=== PATIENT | female | born 2005 | race Caucasian/White ===

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

== ENCOUNTER 2023-08-25 16:15 | Emergency (ER) | payer OTHER, SELFPAY ==
[2023-08-25 16:28] VITALS: BP 103/70; PULSE 115; RESP 16; TEMP 36.8; O2SAT 99
--- NOTE | 2023-08-25 16:38 | ED.URI ---
HPI - URI/Sore Throat General Chief Complaint: Upper Respiratory Infection Stated Complaint: Strep symptoms Time Seen by Provider: 08/25/23 16:30 Source: patient, RN notes reviewed and old records reviewed Mode of arrival: ambulatory Limitations: no limitations History of Present Illness HPI Narrative: 18 year old female who presents to [facility] care with complaints of sore throat for the past 2 days with fever of 101F, patient reports that she took Tylenol for her symptoms. Patient reports that she has not had any further fevrs but continues with sore throat, sneezing, nasal drainage and feels stuffy with some dry cough. Patient reports that it continues to hurt to swallow. Patient reports that her son was ill and was recently seen and he was tested for RSV, COVID Strep and Flu with all tests negative. MD elicited complaint: cough and sore throat Onset (ago): day(s) (2) Description of mucous: clear Able to tolerate fluids by mouth: Yes Treatments prior to arrival: acetaminophen Related Data Home Medications Medication Instructions Recorded Confirmed sertraline 100 mg tablet (Zoloft) 150 mg PO DAILY 11/11/22 08/25/23 Allergies Allergy/AdvReac Type Severity Reaction Status Date / Time amoxicillin [From Amoxil] Allergy Rash Verified 08/25/23 16:24 Review of Systems Review of Systems: CONSTITUTIONAL: Reports malaise, chills, sweats, reports fever 2 days ago none today noted. EYES: Denies visual changes, redness, or discharge. ENT: Reports rhinorrhea, congestion, no sinus pain, no otalgia and positive for sore throat. CARDIOVASCULAR: Denies chest pain, palpitations, or edema. RESPIRATORY: Reports dry cough.? Denies dyspnea. GASTROINTESTINAL: Denies abdominal pain, nausea, vomiting, diarrhea SKIN: Denies rash or itching. MUSCULOSKELETAL: Denies myalgia. NEUROLOGIC: Denies headache. All systems reviewed & are unremarkable except as noted in HPI and below PMFSH Past Medical History Medical History (Updated 08/25/23 @ 17:18 by Cherise Ye NP) Anxiety and depression Autism Pharyngitis Family History Family History Grandparent Diabetes mellitus Sibling Vasculitis Sibling Arthritis Social History Social History Smoking status: Never smoker Substance use: never Lack of Transportation: No Lack of Food: Never True Current Housing: I Have Housing Concerned About Future Housing: No Difficulty Paying Gas/Electric Bills: No Difficulty Paying for Meds: No Currently Unemployed: No Education: High School Diploma/GED Difficulty w/ Childcare or Family Care: No Spiritual care concerns: No Comments At time of signature, agree with nursing past medical, surgical, social and family history. There is no relevant family history pertinent to the presenting complaint Exam Narrative: GENERAL: Well-appearing, well-nourished, and in no acute distress. HEAD: Normocephalic EYES: PERRLA, conjunctivae clear ENT: Nares clear, turbinates edematous and erythematous, clear discharge. Mucous membranes moist. TM pearly thomas with dull light reflex bilaterally; no tragal tenderness. Oropharynx erythematous without lesions. Tonsils not enlarged and without exudate, no drooling, no hoarseness, no trismus, uvula midline.post nasal drainage NECK: Supple. No lymphadenopathy CHEST: Clear to auscultation, breath sounds equal. No wheezing, rhonchi, rales, or stridor. No respiratory distress, speaks in full sentences. dry cough,SAO2 99% on room air HEART: Regular rate and rhythm. No murmur heard. SKIN: Warm, dry, no rash. NEURO: Alert and oriented x3. PSYCH: Normal mood and affect Course Course Emergency Course: Patient is aware of diagnosis, understands and agrees to treatment plan.? Anticipatory guidance given.? Patient agrees to follow-up as directed and
== END 2023-08-25 17:06 | disposition home or self-care (01) ==
PROVIDERS: Emergency Provider Registered Nurse; PCP Obstetrics & Gynecology Gynecology
DX: J06.9 Acute upper respiratory infection, unspecified (principal); J02.9 Acute pharyngitis, unspecified; F84.0 Autistic disorder; F41.9 Anxiety disorder, unspecified; F32.A Depression, unspecified
CPT/HCPCS: 87081; 87880; 99213; G0463

== ENCOUNTER 2025-07-16 17:53 | Emergency (ER) | payer OTHER, SELFPAY ==
--- NOTE | 2025-07-16 17:57 | ED.GENADULT ---
HPI - General Adult General Chief complaint: Upper Respiratory Infection Stated complaint: Cold Symptoms Source: patient Mode of arrival: ambulatory Limitations: no limitations History of Present Illness HPI narrative: Pt is a 20 y/o female presenting with c/o cold sx. Sx began yesterday. Sx reported include rhinorrhea, nasal congestion. 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 No known exposure to COVID, FLU, STREP, PNA. Reports self-dx influenza last week which resolved without medical evaluation. No additional complaints. Related Data Home Medications ?Medication ?Instructions ?Recorded ?Confirmed ?Last Taken ?Type sertraline 100 mg tablet (Zoloft) 150 mg PO DAILY 11/11/22 08/25/23 1 Day Ago History ~11/10/22 Allergies Allergy/AdvReac Type Severity Reaction Status Date / Time amoxicillin (From Amoxil) Allergy Rash Verified 07/16/25 17:59 PMFSH Past Medical History Medical History (Updated 07/16/25 @ 18:06 by Jaspreet Flood APRN) Pharyngitis Anxiety and depression Autism Family History Family History Grandparent Diabetes mellitus Sibling Vasculitis Sibling Arthritis Social History Social History Substance use: never Lack of Transportation: No Lack of Food: Never True Current Housing: I Have Housing Concerned About Future Housing: No Difficulty Paying Gas/Electric Bills: No Difficulty Paying for Meds: No Currently Unemployed: No Education: High School Diploma/GED Difficulty w/ Childcare or Family Care: No Spiritual care concerns: No Exam Narrative: GENERAL: Well-appearing, well-nourished, and in no acute distress. HEAD: Normocephalic, atraumatic. EYES: EOMI. No redness or drainage. Conjunctivae normal. ENT: Mucous membranes pink and moist. Nares clear. No rhinorrhea. TMs normal bilaterally. Throat normal. Uvula midline. Sinuses are nontender to palpation. There is mild excoriation to philtrum from contact with rhinorrhea--no evidence of secondary bacterial skin infection NECK: Normal AROM. Supple. No lymphadenopathy. CHEST: No respiratory distress. Clear to auscultation. HEART: Regular rate and rhythm. No murmur appreciated. SKIN: Warm, dry, no rash. Capillary refill normal. Normal skin turgor. NEURO: No focal deficits. Alert and oriented x3. Gait steady. PSYCH: Normal affect. No signs of depression or anxiety. Course Course Level of Care: Express Care Visit Vital Signs Vital signs: Vital Signs Temperature 98.1 F 07/16/25 18:03 Pulse Rate 111 H 07/16/25 18:03 Respiratory Rate 16 07/16/25 18:03 Blood Pressure 114/71 07/16/25 18:03 Pulse Oximetry 97 07/16/25 18:03 Temperature 98.1 F 07/16/25 18:03 Pulse Rate 111 H 07/16/25 18:03 Respiratory Rate 16 07/16/25 18:03 Blood Pressure 114/71 07/16/25 18:03 Pulse Oximetry 97 07/16/25 18:03 Medical Decision Making Vital Signs Vital Signs: Vital Signs Temperature 98.1 F 07/16/25 18:03 Pulse Rate 111 H 07/16/25 18:03 Respiratory Rate 16 07/16/25 18:03 Blood Pressure 114/71 07/16/25 18:03 Pulse Oximetry 97 07/16/25 18:03 Temperature 98.1 F 07/16/25 18:03 Pulse Rate 111 H 07/16/25 18:03 Respiratory Rate 16 07/16/25 18:03 Blood Pressure 114/71 07/16/25 18:03 Pulse Oximetry 97 07/16/25 18:03 Lab Data Lab results reviewed: Yes I reviewed the patient's lab results. Labs: Lab Results 07/16/25 07/16/25 Range/Units 18:26 18:27 POC Influenza A Ag Negative (Negative) POC Influenza B Ag Negative (Negative) POC SARS CoV-2 Ag Negative (Negative) Discharge Plan Discharge Clinical Impression: Upper respiratory infection Patient Disposition: Home Condition: Stable Instructions: Antibiotic Form, Cold Symptoms (ED) Additional Instructions: Go straight to ER should your symptoms become worse or should any new symptoms develop Patient Language: [place]ian Prescriptions: No Action sertraline [Zoloft] 100 mg Tablet 150 mg PO DAILY Follow-up/Referrals: Aspen Fleming MD [Primary Care Provider, [employer]] Jhon Alberto MD [Physician, Family Practice] - 07/17/25 Time of Disposition: 18:06
[2025-07-16 18:03] VITALS: BP 114/71; PULSE 111; RESP 16; TEMP 36.7; O2SAT 97
[2025-07-16 18:28] LABS: EDCOVIDSCREEN Negative (Negative)
[2025-07-16 18:28] LABS: EDINFLUASCREEN Negative (Negative); EDINFLUBSCREEN Negative (Negative)
== END 2025-07-16 18:24 | disposition home or self-care (01) ==
PROVIDERS: Emergency Provider Registered Nurse; PCP Obstetrics & Gynecology Gynecology
DX: J06.9 Acute upper respiratory infection, unspecified (principal); Z20.822 Contact with and (suspected) exposure to COVID-19; F84.0 Autistic disorder; F41.9 Anxiety disorder, unspecified; F32.A Depression, unspecified
CPT/HCPCS: 87426; 87804; 99212; G0463